=== PATIENT | male | born 1985 | race Two or more races ===

== ENCOUNTER 2019-12-15 00:46 | Emergency (ER) | payer SELFPAY ==
[~2019-12-15] VITALS: Ht 172.7 cm; Wt 110.0 kg
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
[2019-12-15] MEDS ORDERED: LIDOCAINE 1% PF 5 ML VIAL. INJ ONE (01:15)
[2019-12-15] MEDS ORDERED: TRAM-48 PO (01:56)
[2019-12-15 02:30] VITALS: BP 115/73
[2019-12-15] MEDS ORDERED: TRANEXAMIC ACID 1,000 MG/10 ML VIAL. TOP ONE (05:30)
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
== END 2019-12-15 02:50 | disposition home or self-care (01) ==
LOC: ER 00:46
DX: S01.511A Laceration without foreign body of lip, initial encounter (principal); Y08.89XA Assault by other specified means, initial encounter; Y93.89 Activity, other specified; Y92.89 Other specified places as the place of occurrence of the external cause; Y99.8 Other external cause status
CPT/HCPCS: 40650; 70110; 99284; J3490